=== PATIENT | male | born 1990 | race Caucasian/White ===

== ENCOUNTER 2019-02-02 00:31 | Emergency (ER) | payer OTHER, SELFPAY ==
[~2019-02-02] VITALS: Ht 185.4 cm; Wt 75.0 kg
[2019-02-02 00:32] VITALS: BP 133/62
[2019-02-02] MEDS ORDERED: KETOROLAC 60 MG/2 ML VIAL (J1885) IM ONE (02:00)
== END 2019-02-02 02:37 | disposition home or self-care (01) ==
LOC: M ED 00:31
DX: S29.019A Strain of muscle and tendon of unspecified wall of thorax, initial encounter (principal); S50.01XA Contusion of right elbow, initial encounter; V49.19XA Passenger injured in collision with other motor vehicles in nontraffic accident, initial encounter; Y92.410 Unspecified street and highway as the place of occurrence of the external cause
CPT/HCPCS: 96372; 99283; J1885